=== PATIENT | female | born 1990 | race Caucasian/White ===

== ENCOUNTER 2016-09-01 18:10 | Emergency (ER) | payer OTHER ==
[~2016-09-01 18:10] MED LIST: ALBUTEROL INHALER; ALBUTEROL17 GM INH; AUGMENTIN875 M1 PO; AURALGAN AS; BROMPHED DM PO; BUSPAR15 M1 DOB; CIPRO PO; DESYREL50 MG PO; FLOXIN10 ML AU; KCL PO; MACROBID 100 M100 MG PO; MACROBID100 M1 PO; PEN-VEE K PO; PHENERGAN25 M1 PO; PREDNISONE PO; PRENATAL VITAM1 EAC2 PO; PRENATAL VITAMI1 TA3 PO; PRENATAL1 TA1; PROVENTIL INHALER; PYRIDIUM PO; SALINE NOSE SPR45 M1; SUDAFED PO; TYLENOL #3 PO; VOLTAREN75 MG PO; ZITHROMAX PO; ZOFRAN PO; ZYRTEC10 M1 PO
[2017-03-11] MEDS ORDERED: PRENATAL VITAM1 EAC2 PO (04:08)
== END 2016-09-01 18:40 | disposition home or self-care (01) ==
LOC: SED 18:10
DX: K02.9 Dental caries, unspecified (principal); K13.0 Diseases of lips; J45.909 Unspecified asthma, uncomplicated; F17.210 Nicotine dependence, cigarettes, uncomplicated
CPT/HCPCS: 99282